=== PATIENT | female | born 1945 | race Caucasian/White ===

== ENCOUNTER 2023-08-15 08:44 | Emergency (ER) | payer OTHER ==
--- OUTSIDE RECORDS SUMMARY | 2023-08-15 08:49 | XMS REPORT | Continuity of Care Document ---
:1945 Author Organization [facility] t Address [address] [place] [address] [address] [place] [address] Care Team Providers Name Role Phone KAY RILEY Primary Care Physician Unavailable Bebeto Mcdonough Attending Clinician Unavailable ELLIOT SIDDIQUI Attending Clinician Unavailable Elliot Siddiqui PA-C Attending Clinician Doctor Unassigned, [place] Attending Clinician Unavailable Davie House MD Attending Clinician DAVIE HOUSE Attending Clinician Unavailable Jacques Johnston Attending Clinician JACQUES BABCOCK Attending Clinician Unavailable UNKNOWN Admitting Clinician Unavailable ELLIOT SIDDIQUI Admitting Clinician Unavailable Payers Payer Name Policy Type Policy Number Effective Date Expiration Date S [facility] [place]IC[place] PART A \T\ [id number] 2008 B 00:00:00 [employer] [facility] [id number] 2023 SUPPLEMENT 00:00:00 Problems Condition Condition Condition Status Onset Resolution Last Treating Co mments Source Name Details Category Date Date Treatment Clinician Date 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-08 st imbalance imbalance 00:00: Hosp lizzy 00 l Scoliosis Scoliosis Disease Active Met hodi due to due to 05-21 st degenerati degenerati 00:00: Ho spita ve disease ve disease 00 l of spine of spine in adult in adult patient patient Allergies, Adverse Reactions, Alerts Allergy Allergy Status Severity Reaction(s) Onset Inactive Treating Comm ents Source Name Type Date Date Clinician Osorioxijeramie Propensi Active Itching Metho di acin ty to 05-01 adverse 00:00: Hospita reaction 00 l s to drug NO KNOWN Drug Active Univers ALLERGIE Class ity of S [facility] Family History Family Member Diagnosis Comments Start Date Stop Date Source Natural father Natural mother Bone cancer Natural [facility] Natural mother Cancer Social History Social Habit Start Date Stop Date Quantity Comments Source Exposure to Not sure University SARS-CoV-2 (event) [facility] Sexual orientation [facility] History of tobacco [facility] Tobacco use and 2020-05-25 2020-05-25 Smokeless Universit y of exposure 00:00:00 00:00:00 tobacco non-user [facility] dical Branch History [facility] 2020-05-25 2020-05-25 1 University o f Alcohol Frequency 00:00:00 00:00:00 [facility] edical Branch History [facility] 2020-05-25 2020-05-25 99 University o f Alcohol Std Drinks 00:00:00 00:00:00 [place] [facility] [place] History [facility] 2020-05-25 2020-05-25 1 University o f Alcohol Binge 00:00:00 00:00:00 [facility] al Branch Alcohol intake 2017-05-29 2017-05-29 Current [facility] 00:00:00 00:00:00 non-drinker of Hospital alcohol (finding) Cigarettes smoked 2017-04-28 2017-04-[address] current (pack per 00:00:00 00:00:00 Hospita l day) - Reported Cigarette 2017-04-28 2017-04-28 [facility] pack-years 00:00:00 00:00:00 Hospital History of Social 2017-04-28 2017-04-[address] function 00:00:00 00:00:00 Hospital Sex Assigned At [birth year] [facility] 00:00:00 00:00:00 Hospital Smoking Status Start Date Stop Date Source Never smoked tobacco [facility] Ex-smoker 2017-04-28 00:00:00 2017-04-28 00:00:00 [facility] Medications Ordered Filled Start Stop Current Ordering Indication Dosage Frequency Signature Comments Components Source Medication Medication Date Date Medication? Clinician (SIG) Name Name diclofenac 2020-0 Yes [id number] 75mg Take 1 U nivers 75 mg EC 9-10 tablet by ity of tablet 00:00: mouth 2 [place] (two) Medical times Branch daily with meals. diclofenac 2020-0 Yes [id number] 75mg Take 1 U nivers 75 mg EC 9-10 tablet by ity of tablet 00:00: mouth 2 [place] (two) Medical times Branch daily with meals. diclofenac 2020-0 Yes [id number] 75mg Take 1 U nivers 75 mg EC 9-10 tablet by ity of tablet 00:00: mouth 2 [place] (two) Medical times Branch daily with meals. diclofenac 2020-0 Yes [id number] 75mg Take 1 U nivers 75 mg EC 9-10 tablet by ity of tablet 00:00: mouth 2 [place] (two) Medical times Branch daily with meals. triamcinolo 2020-0 2020- No 40mg Unive rs ne 05-25 ity of acetonide 16:15: 15:01 [place] (KENALOG) 00 :00 Medical injection Branch 40 mg triamcinolo 2020-0 2020- No 40mg 40 mg, Uni vers ne 05-25 Intra-yanni ity of acetonide 16:15: 15:01 [place], [place] (KENALOG) 00 :00 ONCE, 1 Medical injection dose, Tue Branc h 40 mg 8/20 at 1115, Routine triamcinolo 2020-0 2020- No 40mg Unive rs ne 05-25 ity of acetonide 16:15: 15:01 [place] (KENALOG) 00 :00 Medical injection Branch 40 mg triamcinolo 2020-0 2020- No 40mg 40 mg, Uni vers ne 05-25 Intra-yanni ity of acetonide 16:15: 15:01 [place], [place] (KENALOG) 00 :00 ONCE, 1 Medical injection dose, Tue Branc h 40 mg 8/4/20 at 1115, Routine triamcinolo 2020-0 2020- No 40mg Unive rs ne 05-25 ity of acetonide 16:15: 15:01 [place] (KENALOG) 00 :00 Medical injection Branch 40 mg triamcinolo 2020-0 2020- No 40mg 40 mg, Uni vers ne 05-25 Intra-yanni ity of acetonide 16:15: 15:01 [place], [place] (KENALOG) 00 :00 ONCE, 1 Medical injection dose, Tue Branc h 40 mg 05/25/20 at 1115, Routine triamcinolo 2020-0 2020- No 40mg Unive rs ne 05-25 ity of acetonide 16:15: 15:01 [place] (KENALOG) 00 :00 Medical injection Branch 40 mg triamcinolo 2020-0 2020- No 40mg 40 mg, Uni vers ne 05-25 Intra-yanni ity of acetonide 16:15: 15:01 [place], [place] (KENALOG) 00 :00 ONCE, 1 Medical injection dose, Ziggye Branc h 40 mg 05/25/20 at 1115, Routine HYDROcodone 2020-0 Yes 1{tbl} Take 1 Un meño -acetaminop 8-04 tablet by ity of hen 7.5-325 14:28: [place] 30 Medical tablet Branch tiZANidine 2020-0 Yes 4mg Take 4 mg Un meño 4 mg tablet 8-04 by mouth. ity of 14:28: [place] [address] Medical Branch HYDROcodone 2020-0 Yes 1{tbl} Take 1 Un meño -acetaminop 8-04 tablet by ity of hen 7.5-325 14:28: [place] per 30 [place] tablet Branch tiZANidine 2020-0 Yes 4mg Take 4 mg Un meño 4 mg tablet 8-04 by mouth. ity of 14:28: [place] [address] Medical Branch HYDROcodone 2020-0 Yes 1{tbl} Take 1 Un meño -acetaminop 8-04 tablet by ity of hen 7.5-325 14:28: [place] per 30 Medical tablet Branch tiZANidine 2020-0 Yes 4mg Take 4 mg Un meño 4 mg tablet 8-04 by mouth. ity of 14:28: [place] [address] Medical Branch HYDROcodone 2020-0 Yes 1{tbl} Take 1 Un meño -acetaminop 8-04 tablet by ity of hen 7.5-325 14:28: [place] per 30 Medical tablet Branch tiZANidine 2020-0 Yes 4mg Take 4 mg Un meño 4 mg tablet 8-04 by mouth. ity of 14:28: [place] [address] Medical Branch HYDROcodone 2020-0 Yes 1{tbl} Take 1 Un meño -acetaminop 8-04 tablet by ity of hen 7.5-325 14:28: [place] per 30 [place] tablet Branch tiZANidine 2020-0 Yes 4mg Take 4 mg Un meño 4 mg tablet 8-04 by mouth. ity of 14:28: [place] [address] Medical Branch HYDROcodone 2020-0 Yes 1{tbl} Take 1 Un meño -acetaminop 8-04 tablet by ity of hen 7.5-325 14:28: [place] per 30 Medical tablet Branch tiZANidine 2020-0 Yes 4mg Take 4 mg Un meño 4 mg tablet 8-04 by mouth. ity of 14:28: [place] [address] Medical Branch HYDROcodone 2020-0 Yes 1{tbl} Take 1 Un meño -acetaminop 8-04 tablet by ity of hen 7.5-325 14:28: [place]. [place] mg per 30 Medical tablet Branch tiZANidine 2020-0 Yes 4mg Take 4 mg Un meño 4 mg tablet 8-04 by mouth. ity of 14:28: [place] [address] Medical Branch HYDROcodone 2020-0 Yes 1{tbl} Take 1 Un meño -acetaminop 8-04 tablet by ity of hen 7.5-325 14:28: [place] per 30 Medical tablet Branch tiZANidine 2020-0 Yes 4mg Take 4 mg Un meño 4 mg tablet 8-04 by mouth. ity of 14:28: [place] [address] Medical Branch HYDROcodone 2020-0 Yes 1{tbl} Take 1 Un meño -acetaminop 8-04 tablet by ity of hen 7.5-325 14:28: [place] per 30 Medical tablet Branch tiZANidine 2020-0 Yes 4mg Take 4 mg Un meño 4 mg tablet 8-04 by mouth. ity of 14:28: [place] [address] Medical Branch HYDROcodone 2020-0 Yes 1{tbl} Take 1 Un meño -acetaminop 8-04 tablet by ity of hen 7.5-325 09:28: [place] per 30 Medical tablet Branch tiZANidine 2020-0 Yes 4mg Take 4 mg Un meño 4 mg tablet 8-04 by mouth. ity of 09:28: [place] [facility] HYDROcodone 2020-0 Yes 1{tbl} Take 1 Un meño -acetaminop 8-04 tablet by ity of hen 7.5-325 09:28: [place] per 30 Medical tablet Branch tiZANidine 2020-0 Yes 4mg Take 4 mg Un meño 4 mg tablet 8-04 by mouth. ity of 09:28: [place] [facility] Diclofenac 2020-0 Yes Univers Sodium 1 % 8-03 ity of gel 00:00: [place] [facility] Diclofenac 2020-0 Yes Univers Sodium 1 % 8-03 ity of gel 00:00: [place] [facility] Diclofenac 2020-0 Yes Univers Sodium 1 % 8-03 ity of gel 00:00: [place] [facility] Diclofenac 2020-0 Yes Univers Sodium 1 % 8-03 ity of gel 00:00: [place] [facility] Diclofenac 2020-0 Yes Univers Sodium 1 % 8-03 ity of gel 00:00: [place] [facility] Diclofenac 2020-0 Yes Univers Sodium 1 % 8-03 ity of gel 00:00: [place] [facility] Diclofenac 2020-0 Yes Univers Sodium 1 % 8-03 ity of gel 00:00: [place] [facility] Diclofenac 2020-0 Yes Univers Sodium 1 % 8-03 ity of gel 00:00: [place] [facility] Diclofenac 2020-0 Yes Univers Sodium 1 % 8-03 ity of gel 00:00: [place] [facility] Diclofenac 2020-0 Yes Univers Sodium 1 % 8-03 ity of gel 00:00: [place] [facility] Diclofenac 2020-0 Yes Univers Sodium 1 % 8-03 ity of gel 00:00: [place] [facility] traZODone 2020-0 Yes Univers 50 mg 7-23 ity of tablet 00:00: [place] [facility] traZODone 2020-0 Yes Univers 50 mg 7-23 ity of tablet 00:00: [place] [facility] traZODone 2020-0 Yes Univers 50 mg 7-23 ity of tablet 00:00: [place] [facility] traZODone 2020-0 Yes Univers 50 mg 7-23 ity of tablet 00:00: [place] [facility] traZODone 2020-0 Yes Univers 50 mg 7-23 ity of tablet 00:00: [place] [facility] traZODone Yes Univers 50 mg 7-23 ity of tablet 00:00: [place] [facility] traZODone Yes Univers 50 mg 7-23 ity of tablet 00:00: [place] [facility] traZODone Yes Univers 50 mg 7-23 ity of tablet 00:00: [place] [facility] traZODone Yes Univers 50 mg 7-23 ity of tablet 00:00: [place] [facility] traZODone Yes Univers 50 mg 7-23 ity of tablet 00:00: [place] [facility] traZODone Yes Univers 50 mg 7-23 ity of tablet 00:00: [place] [facility] zolpidem Yes 10mg QD Take 10 mg Met hodi (AMBIEN) [address] mg tablet 08:19: nightly. Hosp lizzy 15 l tiZANidine Yes 4mg [id number] Take 4 mg Methodi (ZANAFLEX) 05-29 [id number] 4 MG tablet 08:19: 3D (three) Hos zahra 15 times a l day. HYDROcodone Yes 1{tbl} Q6H Take 1 Me thodi -acetaminop 8-08 tablet by hen (NORCO) 08:19: mouth Hospi ta 7.5-325 mg 15 every 6 l per tablet (six) hours as needed for moderate pain. CHOLECALCIF Yes 5000U QD Take 5,000 Methodi CLARISSA, 8-08 Units by VITAMIN D3, 08:19: mouth Hospi ta (VITAMIN D3 15 daily. l ORAL) pregabalin Yes 75mg Q.5D Take 75 mg M ethodi (LYRICA) [address] MG capsule 08:19: (two) Hospit a 15 times a l day. FORTEO 20 Yes INJECT ONE Me thodi mcg/dose - 7-[address] 600 mcg/2.4 00:00: (20MCG) Hos zahra mL 00 SUBCUTANEO l injection USLY ONCE DAILY. DISPOSE OF PEN 28 DAYS AFTER INITIAL DOSE. Vital Signs Vital Name Observation Time Observation Value Comments Source Systolic blood 2020-07-01 19:14:00 117 mm[Hg] Univer sity of [place] pressure Medical Branch Diastolic blood 2020-07-01 19:14:00 69 mm[Hg] Unive rsity of [facility] Heart rate 2020-07-01 19:14:00 84 /min Universi ty of [facility] Body weight 2020-07-01 19:14:00 50.803 kg Universi ty [facility] BMI 2020-07-01 19:14:00 19.84 kg/m2 Universi ty [facility] Systolic blood 2020-07-01 19:14:00 117 mm[Hg] Univer sity of [facility] Branch Diastolic blood 2020-07-01 19:14:00 69 [facility]Hg[facility] 2020-07-01 19:14:00 84 /min Universi ty [facility] Body weight 2020-07-01 19:14:00 50.803 kg Universi ty [facility] BMI 2020-07-01 19:14:00 19.84 kg/m2 Universi ty [facility] Systolic blood 2020-05-25 14:25:00 108 mm[Hg] Univer sit of [facility] Diastolic blood 2020-05-25 14:25:00 72 mm[facility]Hg[facility] 2020-05-25 14:25:00 86 /min Universi ty [facility] Body height 2020-05-25 14:25:00 160 cm Universi ty [facility] Body weight 2020-05-25 14:25:00 50.803 kg Universi ty [facility] BMI 2020-05-25 14:25:00 19.84 kg/m2 Universi ty [facility] Procedures Procedure Date / Time Performed Performing Clinician Sourc e XR SACRUM AND COCCYX 2023-03-07 16:21:35 Elliot Siddiqui [facility] CONSENT/REFUSAL FOR 2023-03-07 15:57:23 Doctor Unassigned, No Un [facility] DIAGNOSIS AND Name Medical Branch TREATMENT MR SHOULDER RIGHT WO 2020-06-24 16:51:12 Davie House [facility] XR SHOULDER <2 VW 2020-05-25 14:48:17 Jacques Babcock [facility] Plan of Care Planned Activity Planned Date Details Comments Source Future Scheduled 2023-08-15 COVID-19 VACCINE (#1) [facility] Test 05:10:29 [code = COVID-19 VACCINE (#1)] Future Scheduled 2023-08-15 SHINGLES VACCINES (1 Met [facility] Test 05:10:29 of 2) [code = SHINGLES VACCINES (1 of 2)] Future Scheduled 2023-08-15 65+ PNEUMOCOCCAL Methodi [facility] Test 05:10:29 VACCINE (1 - PCV) [code = 65+ PNEUMOCOCCAL VACCINE (1 - PCV)] Future Scheduled 2023-08-15 INFLUENZA VACCINE (#1) [facility] Test 05:10:29 [code = INFLUENZA VACCINE (#1)] Encounters Start End Encounter Admission Attending Care Care Encounter Source Date/Time Date/Time Type Type Clinicians Facility Department ID 2021-03-[address] [facility], [facility] [id number] [facility] 07:57:21 Bebeto 99 [facility] 2023-03-07 2023-03-07 Outpatient ELLIOT SIDDIQUI [facility] [id number] Univers 11:06:40 23:59:00 ity of [facility] 2023-03-07 2023-03-07 [facility] [id number] Univers 11:00:00 23:59:00 Encounter JENNIFER [id number] ity of [place] [id number] [facility] [id number] [facility] 807 Branch 2023-03-07 2023-03-07 Orders Doctor CAYLA [id number] Univers 00:00:00 00:00:00 Only Unassigned, JESSICA [id number] ity of [place] [facility] [id number] Sumanth [id number] [facility] 009 Branch 2020-07-01 2020-07-01 Office Briana [facility] [id number] 14:01:14 15:16:39 Visit [facility] [id number] Surgical [id number] Specialti [id number] es 198 [place] 2020-07-01 2020-07-01 [facility] [id number] Univers 14:01:14 15:16:39 Visit Davie [facility] [id number] it y of Surgical [id number] [place] as Specialti [id number] [place] dical es 198 [facility] 2020-07-01 2020-07-01 [facility] [id number] Univers 14:15:00 14:15:00 DAVIE ity [facility] 2020-06-24 2020-06-24 [facility] [id number] Univers 10:32:55 23:59:00 Encounter Davie [place] [id number] ity of [place] 4[place]7.2.686 [place] [id number] [facility] 804 [place] 2020-06-24 2020-06-24 [facility] [id number] Univers 00:00:00 00:00:00 DAVIE hurt [facility] 2020-05-25 2020-06-14 Office [facility] [id number] Univers 09:18:47 10:09:33 Visit Jacques S [facility] [id number] it y of Surgical [id number] [place] as Specialti [id number] [place] dical [place] 198 [facility] 2020-06-10 2020-06-10 [facility] [id number] Univers 00:00:00 00:00:00 Jacques S [facility] [id number] it y of Surgical [id number] Sum[place] as Specialti [id number] Me dical es 198 [facility] 2020-05-25 2020-05-25 [facility] [id number] Univers 09:48:16 23:59:00 Encounter Jacques S Health [id number] ity of Surgical [id number] [place] as Specialti [id number] [place] dical es 809 [facility] 2020-05-25 2020-05-25 Outpatient R ZACKARY [facility] [id number] [facility] 09:30:00 09:30:00 JACQUES hurt [facility] Results Test Description Test Test Results Result Source Time Comments Comments MR SHOULDER 2020-06- HISTORY: ?Pain in the Un iversity of RIGHT WO 03 right shoulder. [place] Med ical CONTRAST 17:05:25 TECHNIQUE: MR imaging [facility] of the right shoulder was done in multipleprojections using 1.5T MR unit and standard protocol. FINDINGS: Motion noted in multiple sequences compromising some of the middetails.Small glenohumeral joint effusion noted and small amount of fluid is seenin the subdeltoid/subacromial bursa as well as surrounding the bicepstendon in the intertubercular groove region. Supraspinatus and infraspinatus tendons are completely torn. Teres minortendon is intact. Upper fibers of subscapularis tendon is swollen butotherwise intact. Glenohumeral joint show degenerative arthritis with multiple degenerativecystic lesions in the glenoid bone. Small degenerative cystic lesions arealso seen in the head of the humerus surrounding greater and lessertuberosities. Long head of the biceps tendon appears to be degenerative and is notclearly visualized in the intertubercular groove region. Short head of thebiceps tendon is intact. No definite labral tear is visualized. Stress-induced marrow edema is seen in the anterior acromion. AC jointshows minimal degenerative changes. No significant impingement noted. Thereis cephalad migration of the head of the humerus with decreased subacromialspace. Marrow edema is seen in the upper lateral surface of the head of thehumerus and the greater tuberosity regions. CONCLUSIONS:1. Completely torn supraspinatus and infraspinatus tendons with performedtendon is retracted up to superior labrum, with diffuse moderate atrophy ofthe muscle tissue.2. Slightly swollen upper subscapularis tendon fibers. Small glenohumeraljoint effusion and small amount of fluid in the subdeltoid bursa.3. Degenerated long head of the biceps tendon. No definite labral tear isdetected.4. Stress-induced marrow edema in the acromion and upper lateral surface ofthe head of the humerus.5. Glenohumeral joint degenerative arthritis. [facility], Radiant Results Inft User - 06/24/2020 12:06 PM CDTHISTORY: Pain in the right shoulder.TECHNIQUE: MR imaging of the right shoulder was done in multipleprojections using 1.5T MR unit and standard protocol.FINDINGS: Motion noted in multiple sequences compromising some of the middetails.Small glenohumeral joint effusion noted and small amount of fluid is seenin the subdeltoid/subacromial bursa as well as surrounding the bicepstendon in the intertubercular groove region.Supraspinatus and infraspinatus tendons are completely torn. Teres minortendon is intact. Upper fibers of subscapularis tendon is swollen butotherwise intact.Glenohumeral joint show degenerative arthritis with multiple degenerativecystic lesions in the glenoid bone. Small degenerative cystic lesions arealso seen in the head of the humerus surrounding greater and lessertuberosities.Long head of the biceps tendon appears to be degenerative and is notclearly visualized in the intertubercular groove region. Short head of thebiceps tendon is intact. No definite labral tear is visualized.Stress-induc ed marrow edema is seen in the anterior acromion. AC jointshows minimal degenerative changes. No significant impingement noted. Thereis cephalad migration of the head of the humerus with decreased subacromialspace. Marrow edema is seen in the upper lateral surface of the head of thehumerus and the greater tuberosity regions.CONCLUSIONS:1. Completely torn supraspinatus and infraspinatus tendons with performedtendon is retracted up to superior labrum, with diffuse moderate atrophy ofthe muscle tissue.2. Slightly swollen upper subscapularis tendon fibers. Small glenohumeraljoint effusion and small amount of fluid in the subdeltoid bursa.3. Degenerated long head of the biceps tendon. No definite labral tear isdetected.4. Stress-induced marrow edema in the acromion and upper lateral surface ofthe head of the humerus.5. Glenohumeral joint degenerative arthritis. XR SHOULDER <2 2020-05- No sign of fracture U niversity of [place] RIGHT 04 dislocation joint space [place] [facility] 15:17:09 is well-maintained Branch there are some mild degenerative change there is a slight superior migration of the humeral head
[2023-08-15 09:38] LABS: Absolute Lymphocytes (CBC) 1.2 K/uL (0.7-4.9); Hematocrit 39.5 % (36.0-45.0); Lymphocytes % 29.4 % (15.3-44.8); MCV 94.3 fL (80-100); MPV 5.9 fL (7.6-11.3); Platelets 232 thou/uL (152-406); RBC Red Blood Cell Count 4.18 M/uL (3.86-4.86)
[2023-08-15] MEDS ORDERED: METHYLPREDNISOLONE 125 MG INJ ONE (09:47)
[2023-08-15] MEDS ORDERED: DIPHENHYDRAMINE 50 MG/ML VIAL ONE (09:47)
[2023-08-15] MEDS ORDERED: NA CHLORIDE 0.9% 1,000 ML ONE (09:48)
[2023-08-15] MEDS ORDERED: predniSONE 20 MG TAB ONE (09:48)
[2023-08-15] MEDS ORDERED: FAMOTIDINE 20 MG/2 ML VIAL IV ONE (09:48)
[2023-08-15 09:56] LABS: Albumin 3.9 g/dL (3.4-5.0); Bilirubin Total 0.6 mg/dL (0.2-1.0); Potassium 4.4 mEq/L (3.5-5.1); Protein, Total 6.8 g/dL (6.4-8.2)
--- NOTE | 2023-08-15 10:25 | EDPHYS ---
Physician Documentation [facility] Name: Mireya Hernandez Age: 77 yrs Sex: Female : 1945 Arrival Date: 08/15/2023 Time: 08:44 Bed 8 Private MD: Jaguar Baugh ED Physician Denys Trevino HPI: 08/15 10:12 This 77 yrs old Female presents to ER via Ambulatory with complaints of Bee tobin Sting. Historical: - Allergies: 09:04 Avelox; tm6 - PMHx: 09:04 Spine Issues; tm6 - Immunization history:: Adult Immunizations not up to date. - Social history:: Smoking status: Patient reports the use of cigarette tobacco products, smokes one-half pack cigarettes per day, Patient/guardian denies using alcohol. ROS: 10:17 Constitutional: Negative for fever, chills, and weight loss, Eyes: Negative for injury, tobin pain, redness, and discharge, ENT: Negative for injury, pain, and discharge, Neck: Negative for injury, pain, and swelling, Cardiovascular: Negative for chest pain, palpitations, and edema, Respiratory: Negative for shortness of breath, cough, wheezing, and pleuritic chest pain, Abdomen/GI: Negative for abdominal pain, nausea, vomiting, diarrhea, and constipation, Back: Negative for injury and pain, : Negative for injury, bleeding, discharge, and swelling, Skin: Negative for injury, rash, and discoloration, Neuro: Negative for headache, weakness, numbness, tingling, and seizure, Psych: Negative for depression, anxiety, suicide ideation, homicidal ideation, and hallucinations, Allergy/Immunology: Negative for hives, rash, and allergies, Endocrine: Negative for neck swelling, polydipsia, polyuria, polyphagia, and marked weight changes, Hematologic/Lymphatic: Negative for swollen nodes, abnormal bleeding, and unusual bruising, 10:17 MS/extremity: Positive for pain, swelling, tenderness, Exam: 10:17 Constitutional: This is a well developed, well nourished patient who is awake, alert, tobin and in no acute distress. Head/Face: Normocephalic, atraumatic. Eyes: Pupils equal round and reactive to light, extra-ocular motions intact. Lids and lashes normal. Conjunctiva and sclera are non-icteric and not injected. Cornea within normal limits. Periorbital areas with no swelling, redness, or edema. ENT: Nares patent. No nasal discharge, no septal abnormalities noted. Tympanic membranes are normal and external auditory canals are clear. Oropharynx with no redness, swelling, or masses, exudates, or evidence of obstruction, uvula midline. Mucous membranes moist. Neck: Trachea midline, no thyromegaly or masses palpated, and no cervical lymphadenopathy. Supple, full range of motion without nuchal rigidity, or vertebral point tenderness. No Meningismus. Chest/axilla: Normal chest wall appearance and motion. Nontender with no deformity. No lesions are appreciated. Cardiovascular: Regular rate and rhythm with a normal S1 and S2. No gallops, murmurs, or rubs. Normal PMI, no JVD. No pulse deficits. Respiratory: Lungs have equal breath sounds bilaterally, clear to auscultation and percussion. No rales, rhonchi or wheezes noted. No increased work of breathing, no retractions or nasal flaring. Abdomen/GI: Soft, non-tender, with normal bowel sounds. No distension or tympany. No guarding or rebound. No evidence of tenderness throughout. Back: No spinal tenderness. No costovertebral tenderness. Full range of motion. Female : Normal external genitalia. Skin: Warm, dry with normal turgor. Normal color with no rashes, no lesions, and no evidence of cellulitis. Neuro: Awake and alert, GCS 15, oriented to person, place, time, and situation. Cranial nerves II-XII grossly intact. Motor strength 5/5 in all extremities. Sensory grossly intact. Cerebellar exam normal. Normal gait. Psych: Awake, alert, with orientation to person, place and time. Behavior, mood, and affect are within normal limits. 10:17 Musculoskeletal/extremity: Extremities: grossly normal except: noted in the dorsal aspect of distal phalanx of left thumb, dorsal aspect of proximal phalanx of left thumb, palmar aspect of distal phalanx of left thumb and palmar aspect of proximal phalanx of left thumb: erythema, pain, Vital Signs: 08:58 BP 106 / 81; Pulse 63; Resp 17; Temp 97.1(TE); Pulse Ox 100% on R/A; Weight 48.08 kg; tm6 Height 5 ft. 3 in. ; Pain 2/10; 10:22 BP 123 / 98; Pulse 71; Resp 17; Pulse Ox 97% on R/A; Pain 0/10; tm6 10:48 BP 142 / 104; Pulse 64; Resp 17; Pulse Ox 97% on R/A; tm6 08:58 Body Mass Index 18.78 (48.08 kg, 160.02 cm) tm6 08:58 Pain Scale: Adult tm6 10:22 Pain Scale: Adult tm6 MDM: 08:48 Patient medically screened. tobin 10:22 Differential diagnosis: anaphylaxis, angioedema, contusion, abrasion. Data reviewed: [facility] vital signs, nurses notes, lab test result(s). Consideration of Admission/Observation Escalation of care including admission/observation considered. I considered the following discharge prescriptions or medication management in the emergency department Medications were administered in the Emergency Department. See MAR. Test considered but Not performed: X-ray: no xrays. Care significantly affected by the following chronic conditions: Liver Disease. 08/15 08:49 Order name: CBC with Diff; Complete Time: 09:48 [facility] 08/15 08:49 Order name: Comprehensive Metabolic Panel; Complete Time: 10:21 tobin Administered Medications: 10:21 Drug: NS 0.9% IV 1000 ml IV at 1 bolus Per protocol; 1000 mL bolus Route: IV; Rate: 1 tm6 bolus; Site: right antecubital; 10:21 Drug: MethylPrednisoLONE IVP 125 mg IVP once Route: IVP; Site: right antecubital; tm6 10:21 Drug: predniSONE PO 60 mg PO once Route: PO; tm6 10:21 Drug: Famotidine IVP 40 mg IVP once; dilute with 10 mL 0.9% NaCl; give over 2 minutes tm6 Route: IVP; Site: right antecubital; 10:21 Drug: diphenhydrAMINE IVP 37.5 mg IVP once Route: IVP; Site: right antecubital; tm6 10:46 Drug: Mupirocin Topical Ointment 2 % 1 application Topical once Route: Topical; Site: tm6 left hand; 10:47 Drug: Ativan IVP 0.5 mg IVP once Route: IVP; Site: right antecubital; tm6 Disposition Summary: 08/15/23 10:24 Discharge Ordered Notes: Location: Home [facility] Problem: new tobin Symptoms: have improved [facility] Condition: Stable [facility] Diagnosis - Toxic effect of venom of bees, accidental (unintentional) [facility] - Cellulitis of left finger tobin Followup: [facility] - With: Jaguar Baugh MD - When: 2 - 3 days - Reason: Recheck today's complaints, Continuance of care, Re-evaluation by your physician Discharge Instructions: - Discharge Summary Sheet [facility] - Anaphylactic Reaction, Adult [facility] - Bee, Wasp, or Hornet Sting, Adult tobin - Cellulitis, Adult tobin - Cellulitis, Adult, [id number] tobin - Anaphylactic Reaction, Adult, [id number] [facility] Forms: - Medication Reconciliation Form [facility] - Thank You Letter [facility] - Antibiotic Education [facility] - Prescription Opioid Use [facility] - Patient Portal Instructions [facility] - Leadership Thank You Letter [facility] Prescriptions: - Centany 2 % Topical ointment - apply 1 application TOPICAL route 3 times per day; 15 gram; Refills: 0, Product [facility] Selection Permitted - Benadryl 25 mg Oral Capsule - take 1 capsule ORAL route every 6 hours As needed; 30 tablet; Refills: 0, [facility] Product Selection Permitted - Cephalexin 500 mg Oral capsule - take 1 capsule ORAL route every 6 hours for 7 days; 28 capsule; Refills: 0, [facility] Product Selection Permitted - Pepcid 20 mg Oral Tablet - take 1 tablet ORAL route every 12 hours for 10 days; 20 tablet; Refills: 0, [facility] Product Selection Permitted - Prednisone 20 mg Oral tablet - take 2 tablets ORAL route once daily for 5 days; 8 tablet; Refills: 0, Product [facility] Selection Permitted Signatures: Dispatcher [employer] Denys Decker MD MD cha Masterson, Tawney RN RN tm6
--- NOTE | 2023-08-15 10:25 | ER ---
Nurse's Notes [facility] Name: Mireya Hernandez Age: 77 yrs Sex: Female : 1945 Arrival Date: 08/15/2023 Time: 08:44 Bed 8 Private MD: Jaguar Baugh Diagnosis: Toxic effect of venom of bees, accidental (unintentional);Cellulitis of left finger Presentation: 08/15 09:02 Chief complaint: Patient states: bee sting to left hand. tm6 09:02 Coronavirus screen: Vaccine status: Patient reports being unvaccinated. Ebola Screen: tm6 Patient negative for fever greater than or equal to 101.5 degrees Fahrenheit, and additional compatible Ebola Virus Disease symptoms Patient denies exposure to infectious person. Patient denies travel to an Ebola-affected area in the 21 days before illness onset. No symptoms or risks identified at this time. Anaphylaxis evaluation, the patient reports or I have noted the following symptoms which indicate a significant risk of anaphylaxis: lump in the throat which may suggest laryngeal edema. Initial Sepsis Screen: Does the patient meet any 2 criteria? No. Patient's initial sepsis screen is negative. Does the patient have a suspected source of infection? No. Patient's initial sepsis screen is negative. Risk Assessment: Do you want to hurt yourself or someone else? Patient reports no desire to harm self or others. Onset of symptoms was August 15, 2023. 09:02 Method Of Arrival: Ambulatory tm6 09:02 Acuity: SRUTHI 3 tm6 Triage Assessment: 08:58 General: Appears in no apparent distress. Behavior is calm, cooperative, appropriate tm6 for age. Pain: Complains of pain in left hand Pain began 1 hour ago. EENT: Reports difficulty breathing. Neuro: Level of Consciousness is awake, alert, obeys commands, Oriented to person, place, time, situation, Appropriate for age. Cardiovascular: Capillary refill < 3 seconds Patient's skin is warm and dry. Respiratory: Airway is patent Respiratory effort is even, unlabored, Respiratory pattern is regular, symmetrical. GI: Abdomen is flat, non-distended. : No signs and/or symptoms were reported regarding the genitourinary system. Derm: No signs and/or symptoms reported regarding the dermatologic system. Derm: Wound noted left hand. Musculoskeletal: No signs and/or symptoms reported regarding the musculoskeletal system. Injury Description: Bite sustained to left hand caused by a bee, was sustained 1-2 hours ago. Historical: - Allergies: 09:04 Avelox; tm6 - PMHx: 09:04 Spine Issues; tm6 - Immunization history:: Adult Immunizations not up to date. - Social history:: Smoking status: Patient reports the use of cigarette tobacco products, smokes one-half pack cigarettes per day, Patient/guardian denies using alcohol. Screenin:[facility] ED Fall Risk Assessment (Adult) History of falling in the last 3 months, tm6 including since admission No falls in past 3 months (0 pts). Abuse screen: Denies threats or abuse. Denies injuries from another. Nutritional screening: No deficits noted. Tuberculosis screening: No symptoms or risk factors identified. Assessment: 09:05 Reassessment: see triage assessment. tm6 10:22 Reassessment: No changes from previously documented assessment. Patient and/or family tm6 updated on plan of care and expected duration. Pain level reassessed. patient shaking; notified ERP. 11:00 Respiratory: Breath sounds are clear bilaterally. tm6 Vital Signs: 08:58 BP 106 / 81; Pulse 63; Resp 17; Temp 97.1(TE); Pulse Ox 100% on R/A; Weight 48.08 kg; tm6 Height 5 ft. 3 in. ; Pain 2/10; 10:22 BP 123 / 98; Pulse 71; Resp 17; Pulse Ox 97% on R/A; Pain 0/10; tm6 10:48 BP 142 / 104; Pulse 64; Resp 17; Pulse Ox 97% on R/A; tm6 08:58 Body Mass Index 18.78 (48.08 kg, 160.02 cm) tm6 08:58 Pain Scale: Adult tm6 10:22 Pain Scale: Adult tm6 ED Course: 08:45 Patient arrived in ED. rg4 08:45 Jaguar Baugh MD is Private Physician. rg4 08:48 Denys Trevino MD is Attending Physician. tobin 08:48 Arm band placed on Patient placed in an exam room, on a stretcher. ll1 08:58 Pino Martel, BRAIN is Primary Nurse. tm6 09:03 Triage completed. tm6 10:22 Inserted saline lock: 20 gauge in right antecubital area, using aseptic technique. tm6 10:23 Jaguar Baugh MD is Referral Physician. [facility] 10:59 Patient has correct armband on for positive identification. Bed in low position. Side tm6 rails up X2. 11:00 Provided Education on: meds. tm6 11:00 No provider procedures requiring assistance completed. IV discontinued, intact, tm6 bleeding controlled. Administered Medications: 10:21 Drug: NS 0.9% IV 1000 ml IV at 1 bolus Per protocol; 1000 mL bolus Route: IV; Rate: 1 tm6 bolus; Site: right antecubital; 10:21 Drug: MethylPrednisoLONE IVP 125 mg IVP once Route: IVP; Site: right antecubital; tm6 10:21 Drug: predniSONE PO 60 mg PO once Route: PO; tm6 10:21 Drug: Famotidine IVP 40 mg IVP once; dilute with 10 mL 0.9% NaCl; give over 2 minutes tm6 Route: IVP; Site: right antecubital; 10:21 Drug: diphenhydrAMINE IVP 37.5 mg IVP once Route: IVP; Site: right antecubital; tm6 10:46 Drug: Mupirocin Topical Ointment 2 % 1 application Topical once Route: Topical; Site: tm6 left hand; 10:47 Drug: Ativan IVP 0.5 mg IVP once Route: IVP; Site: right antecubital; tm6 Medication: 11:00 VIS not applicable for this client. tm6 Outcome: 10:24 Discharge ordered by . [facility] 10:59 Discharged to home ambulatory, tm6 10:59 Condition: stable 10:59 Discharge instructions given to patient, family, Instructed on discharge instructions, follow up and referral plans. medication usage, Demonstrated understanding of instructions, follow-up care, medications, Prescriptions given X 4, 11:00 Patient left the ED. tm6 Signatures: Denys Trevino MD MD cha Garcia, Rubi rg4 Indy Romo RN RN ll1 Pino Martel RN RN tm6
[2023-08-15] MEDS ORDERED: LORazepam 2 MG/ML VIAL ONE (10:44)
[2023-08-15] MEDS ORDERED: MUPIROCIN 2% OINT 22GM TUBE TOP ONE (10:45)
[2023-08-16 15:47] VITALS: BP 142/104; TEMP 97.1; O2SAT 97
== END 2023-08-15 11:00 | disposition home or self-care (01) ==
LOC: ER 08:44
DX: L03.012 Cellulitis of left finger (principal); T63.441A Toxic effect of venom of bees, accidental (unintentional), initial encounter; F17.210 Nicotine dependence, cigarettes, uncomplicated; Z88.1 Allergy status to other antibiotic agents
CPT/HCPCS: 85025; 36415; 80053; 96375; 96374; 99284; J7512; J1200; J2930; J7030